=== PATIENT | female | born 1950 ===

== ENCOUNTER 2022-12-02 09:00 | Inpatient (IN) | payer OTHER ==
[~2022-12-02] VITALS: Ht 160 cm; Wt 77.1 kg
[2022-12-02] MEDS ORDERED: CILOSTAZOL100 MG PO (12:01)
[2022-12-02] MEDS ORDERED: GLIPIZIDE XL10 MG PO (12:01)
[2022-12-02] MEDS ORDERED: METFORMIN HCL1000 M2 PO (12:02)
[2022-12-02] MEDS ORDERED: GRALISE600 MG PO (12:02)
[2022-12-02] MEDS ORDERED: JANUVIA100 MG PO (12:02)
[2022-12-02] MEDS ORDERED: ISOSORBIDE DINI30 MG PO (12:02)
[2022-12-02] MEDS ORDERED: CARVEDILOL3.125 MG (12:03)
[2022-12-02] MEDS ORDERED: ZESTRIL10 M1 PO (12:03)
[2022-12-02] MEDS ORDERED: BAYER THERAPY325 MG PO (12:03)
[2022-12-02] MEDS ORDERED: LIPITOR20 MG PO (12:03)
[2022-12-02] MEDS ORDERED: LASIX40 MG PO (12:04)
[2022-12-05] MEDS ORDERED: ISOSORBIDE MONO30 M2 (13:30)
[2022-12-10] MEDS ORDERED: LEVSIN/SL0.125 MG SL (08:48)
[2022-12-10] MEDS ORDERED: PEPCID AC20 MG PO (08:49)
[2022-12-10] MEDS ORDERED: CIPRO500 MG PO (08:49)
== END 2022-12-10 10:46 | disposition home or self-care (01) | DRG 331 ==
LOC: SURH 12-05 06:24 → O/R 12-05 06:24 → SURH 12-05 09:00
PROVIDERS: ADMIT Surgery; ATTEND Surgery
PROC: 0DBP4ZZ Excision of Rectum, Percutaneous Endoscopic Approach (ICD-10-PCS; 2022-12-05)
PROC: 07BC4ZX Excision of Pelvis Lymphatic, Percutaneous Endoscopic Approach, Diagnostic (ICD-10-PCS; 2022-12-05)
PROC: 0WQF4ZZ Repair Abdominal Wall, Percutaneous Endoscopic Approach (ICD-10-PCS; 2022-12-05)
PROC: 0DTN4ZZ Resection of Sigmoid Colon, Percutaneous Endoscopic Approach (ICD-10-PCS; principal; 2022-12-05 12:00)
DX: D12.5 Benign neoplasm of sigmoid colon (principal); K64.8 Other hemorrhoids; R59.0 Localized enlarged lymph nodes; K42.9 Umbilical hernia without obstruction or gangrene; I10 Essential (primary) hypertension